=== PATIENT | female | born 1945 | race Caucasian/White ===

== ENCOUNTER → 2016-07-26 | Outpatient (CLI) | payer MEDICARE, BC ==
--- NOTE | 2016-07-27 12:18 | CARD ---
APPROVED REPORT EXAM: Two-dimensional and M-mode echocardiogram with Doppler and color Doppler. Other Information Quality : Average Rhythm : NSR INDICATION Murmur 2D DIMENSIONS RVDd3.1 (2.9-3.5cm)Left Atrium(2D)3.9 (1.6-4.0cm) IVSd1.0 (0.7-1.1cm)Aortic Root(2D)3.1 (2.0-3.7cm) LVDd5.3 (3.9-5.9cm)LVOT Diameter2.1 (1.8-2.4cm) PWd1.0 (0.7-1.1cm)LVDs2.7 (2.5-4.0cm) FS (%) 38.9 %SV106.5 ml LVEF(%)69.9 (>50%) Aortic Valve AoV Peak Toto.167.7cm/sAoV VTI37.2cm AO Peak GR.11.2mmHgLVOT Peak Otto.100.8cm/s LVOT VTI 26.20cmAO Mean GR.6mmHg SANTOS (VMAX)2.76vd1NYA (VTI)2.35cm2 Mitral Valve MV E Ofpnyowz18.0cm/sMV DECEL PKPW279kr MV A Rtabcwai29.8cm/sMV IQG13ag E/A Ratio1.1MV A Kirpgrog555xy MVA (PHT)2.73cm2 TDI E/Lateral E'5.5E/Medial E'10.3 Pulmonary Valve PV Peak Orvaiwip38.5cm/sPV Peak Grad.3mmHg Tricuspid Valve TR P. Xjpharxn406qg/sRAP VLTOYOIE5oiGt TR Peak Gr.59rlBjPITL03leNx Pulmonary Vein S1 Jselcgxd09.6cm/sD2 Hnnaddda49.8cm/s LEFT VENTRICLE The left ventricle is normal size. There is normal left ventricular wall thickness. Left ventricle sy stolic function is normal. The Ejection Fraction is 60-65%. There is normal LV segmental wall motion. The left ventricular diastolic function and filling is normal for age. There is no ventricular septa l defect visualized. RIGHT VENTRICLE The right ventricle is normal size. The right ventricular systolic function is normal. ATRIA The left atrium size is normal. The right atrium size is normal. The interatrial septum is intact wit h no evidence for an atrial septal defect or patent foramen ovale as noted on 2-D or Doppler imaging. AORTIC VALVE The aortic valve is normal in structure and function. The aortic valve is trileaflet. Doppler and Col or Flow revealed no significant aortic regurgitation. There is no significant aortic valvular stenosi s. MITRAL VALVE The mitral valve is normal in structure and function. There is no mitral valve stenosis. Doppler and Color Flow revealed mild mitral regurgitation. TRICUSPID VALVE The tricuspid valve is normal in structure and function. Doppler and Color Flow revealed mild tricusp id regurgitation. The PA pressure was estimated at 33 mmHg. There is no tricuspid valve stenosis. PULMONIC VALVE The pulmonic valve is not well visualized. Doppler and Color Flow revealed no pulmonic valvular regur gitation. There is no pulmonic valvular stenosis. GREAT VESSELS The aortic root is normal in size. The ascending aorta is normal in size. Normal pulmonary venous sasha w (Doppler). The IVC is normal in size and collapses >50% with inspiration. PERICARDIAL EFFUSION There is no evidence of significant pericardial effusion. Critical Notification Critical Value: No <Conclusion> Left ventricle systolic function is normal. The Ejection Fraction is 60-65%. There is normal LV segmental wall motion. The left ventricular diastolic function and filling is normal for age. Doppler and Color Flow revealed mild mitral regurgitation. Doppler and Color Flow revealed mild tricuspid regurgitation. The PA pressure was estimated at 33 mmH g.
== END | disposition home or self-care (01) ==
LOC: ECHO 07:29
PROVIDERS: ATTEND Physician Assistant Medical
DX: I31.3 Pericardial effusion (noninflammatory) (principal); I08.1 Rheumatic disorders of both mitral and tricuspid valves
CPT/HCPCS: 93306

== ENCOUNTER → 2018-08-30 | Outpatient (CLI) | payer MEDICARE, BC ==
[~2018-08-30] MED LIST: REGADENOSON 0.4 MG/5 ML DISP.SYRIN. IV ONE
--- NOTE | 2018-08-30 09:56 | RAD ---
RS Compliance Statement: One or more of the following individualized dose reduction techniques were utilized for this examination: 1. Automated exposure control 2. Adjustment of the mA and/or kV according to patient size 3. Use of iterative reconstruction technique CT head without contrast 08/30/2018 2:00 PM INDICATION: Memory loss COMPARISON: None available TECHNIQUE: Multiple axial CT images of the head were obtained from skull base through the vertex without intravenous contrast. FINDINGS: Head: Ventricles, sulci and basal cisterns are within normal limits. There is no hydrocephalus. Gale-white matter differentiation is normal. There is no acute intracranial hemorrhage. There is no mass, mass effect or midline shift. Posterior fossa is normal in appearance. Visualized portions of the orbits are normal with exception of bilateral lens replacement. Paranasal sinuses are well aerated. Mastoid air cells are well aerated. Scalp and calvaria are normal. IMPRESSION: No acute intracranial hemorrhage. Electronically signed by: Ana Mccann MD (08/30/2018 9:53 AM) [facility]
--- NOTE | 2018-08-30 13:08 | RAD ---
MR#: [id number] Date of Study: 08/30/2018 Ordering Physician: LILIYA KENT, Referring Physician: ALEKSANDER VOGEL Tech: TABITHA Dunlap APPROVED REPORT Test Type: Pharmacological Stress Nurse/Tech: Evelyn Vanegas RN Test Indications: A-fib Cardiac History: No known cardiac Medications: See Electronic Medical Record Medical History: See Electronic Medical Record Resting ECG: SB with p wave inversion and BBB Resting Heart Rate: 53 bpm Resting Blood Pressure: 111/59mmHg Pretest Chest Pain: No chest pain Nurse/Tech Notes S1,S2--regurgitation? and lungs clear to auscultation. Consent: The procedure was explained to the patient in lay terms. Informed consent was witnessed. Claudio eout was entered into [employer]. History and Stress Test performed by MANAS Clifford, JAKUB (R) (N) Pharm. Details Pharmacologic stress testing was performed using 0.4mg per 5ml of regadenoson given intravenously ove r 7-10 seconds. Stress Symptoms No chest pain or symptoms. POST EXERCISE Reason for Termination: Infusion complete Target HR: No Max HR: 84 bpm 67% of Maximum Predicted HR: 124 bpm Max Blood Pressure: 113/53mmHg Blood Pressure response to exercise: Normal blood pressure response during stress. Heart Rate response to exercise: WNL Chest Pain: No. Arrhythmia: No. ST Change: No. INTERPRETATION Stress EKG Conclusion: The resting EKG shows a sinus rhythm and minimal nonspecific ST segment change s. Imaging Protocol IMAGE PROTOCOL: Rest Tc-99m/stress Tc-99m 1 day Rest: Stress: Viability: Radiopharm.Tc99m IpnhmzeezCo97e Sestamibi Iwae02hCp 33mCi Duration 15min. 10min. Img Date 08/30/2018 08/30/2018 Inj-Img Zcuu27bve. 60min. Rest Admin Site:IV - Right HandAdministrator:MANAS Clifford, JAKUB (R)(N) Stress Admin Site: IV - Right HandAdministrator: MANAS Clifford, ARRT (R)(N) STRESS DATA End Diast. Vol.119.0mlAv. Heart Rate72.0bpm End Syst. Vol.34.0mlCO Index BSA0.0L/min Myocardial Jext755.0gEject. Lexheslw96.0% Stress Rates Pk. Fill Rate2.62EDV/secLVtime Pk. Fill 115.00msec Pk. Empty Rate4.53ESV/secLVtime Pk. Ozvtg807.02msec 1/3 Pk. Fill1.84EDV/sec Stress Scores Regional WT0.00Summed WT0.00 Regional WM0.00Summed WM0.00 LV Perfusion The stress scans showed minimal inferior thinning. The rest scans showed minimal inferior thinning. Nuclear imaging shows no evidence of reversible ischemia. There is fixed minimal inferior wall thinni ng most consistent with an attenuation defect. Wall Motion Left ventricular systolic function is normal with no regional wall motion abnormalities and an ejecti on fraction of greater than 70%. LV Perf. Quant 17 Seg. SSS9.00 17 Seg. SRS13.00 17 Seg. SDS0.00 Stress Defect Extent (% LAD)8.80Rest Defect Extent (% LAD)9.40Rev. Defect Extent (% LAD)0.00 Stress Defect Extent (% LCX) 20.00Rest Defect Extent (% LCX)23.80Rev. Defect Extent (% LCX)0.00 Stress Defect Extent (% RCA)13.30Rest Defect Extent (% RCA)37.80Rev. Defect Extent (% RCA)0.00 Stress Defect Extent (% [place])18.00Rest Defect Extent (% [place])25.20Rev. Defect Extent (% [place])0.00 Conclusion 1. No EKG evidence of stress-induced ischemia. 2. Nuclear imaging shows no reversible ischemia. 3. Nuclear imaging shows minimal fixed inferior wall thinning most consistent with an attenuation def ect. 4. Left ventricular systolic function is normal with no regional wall motion abnormalities and an eje ction fraction of greater than 70%. 5. Moderately low risk Lexiscan nuclear stress test with no reversible ischemia and normal LV systoli c function. Signed by : Clarence Hitchcock MD Electronically Approved : 08/30/2018 13:08:05
== END | disposition home or self-care (01) ==
LOC: NM 09:07
PROVIDERS: ATTEND Internal Medicine Cardiovascular Disease
DX: R41.3 Other amnesia (principal); I48.0 Paroxysmal atrial fibrillation
CPT/HCPCS: 70450; 78452; 93017; A9500; J2785

== ENCOUNTER → 2018-09-17 | Day surgery (SDC) | payer MEDICARE, BC ==
[~2018-09-17] MED LIST changes: +ATOR10TA PO; +BENZOCAINE ONE 20% MUCOSAL SPRAY. MM; +CHOL2000 PO; +EYE CAP PO; +EZET10TA18 PO; +HYDROmorphone 2 MG/ML VIAL IV PRN; +IV RINGERS,LACTATED 1000ML 1,000 ML IV SCH; +LEVO175T2 PO; +LIDOCAINE 1% PF 2 ML VIAL. ID PRN; +LIDOCAINE 2% TOPICAL JELLY 30GM TUBE. TP ONE; +MORPHINE SULFATE 2 MG/ML VIAL. IV PRN; +OMEG1600 PO; +ONDANSETRON PF 4 MG/2 ML VIAL. IV PRN; +PROCHLORPERAZINE 10 MG/2 ML VIAL. IV PRN; +PROPOFOL 20 ML IV ONE; -REGADENOSON 0.4 MG/5 ML DISP.SYRIN. IV ONE; +RIVA15TA PO; +VALS40TA2 PO; +[UNRECOGNIZED DRUG - OTHER] PO; +fentaNYL PF VIAL 100 MCG/2 ML VIAL IV PRN
--- NOTE | 2018-09-17 13:51 | EKG ---
[facility] [address] [place] [address] Test Date: 2018-09-17 Test Time: 13:45:08 Pat Name: WALLY MCKINLEY Department: Room: Gender: F Drying Room Attendant: RAMY : 1945 Requested By: LILIYA KENT Order Number: [id number] Reading MD: Measurements Intervals [place] Rate: 98 P: MA: QRS: -39 QRSD: 88 T: 28 QT: 354 QTc: 454 Interpretive Statements IRREGULAR RHYTHM, NO P-WAVE FOUND ABNORMAL LEFT AXIS DEVIATION S1,S2,S3 PATTERN LEFT ANTERIOR FASCICULAR BLOCK QRS(T) CONTOUR ABNORMALITY CONSIDER INFERIOR MYOCARDIAL DAMAGE ABNORMAL ECG RI6.01 No previous ECG available for comparison
[2018-09-17 14:12] LABS: HEMATOCRIT 42.6 % (36.0-47.0); HEMOGLOBIN 14.2 g/dL (12.0-15.5); RED BLOOD COUNT 4.69 x10^6/uL (3.50-5.40)
[2018-09-17 14:22] LABS: PROTHROMBIN TIME PATIENT 12.9 SEC (11.7-14.0)
[2018-09-17 14:25] LABS: CALCIUM 9.2 mg/dL (8.5-10.1); CREATININE 0.7 mg/dL (0.6-1.0)
[2018-09-17] MEDS: LIDOCAINE 2% VISCOUS 15 ML SOLUTION. SWSW ONE ×2 (15:10→15:15)
--- NOTE | 2018-09-17 16:16 | EKG ---
[facility] [address] [place] [address] Test Date: 2018-09-17 Test Time: 16:08:06 Pat Name: WALLY MCKINLEY Department: Room: Gender: F Irrigator Head: CRISTINE : 1945 Requested By: LILIYA KENT Order Number: [id number] Reading MD: Measurements Intervals [place] Rate: 49 P: 56 NC: 188 QRS: -35 QRSD: 94 T: 29 QT: 434 QTc: 391 Interpretive Statements SINUS BRADYCARDIA ABNORMAL LEFT AXIS DEVIATION LEFT ANTERIOR FASCICULAR BLOCK ABNORMAL ECG RI6.01 Unconfirmed report No previous ECG available for comparison
[2018-09-17 16:30] VITALS: BP 103/59
--- NOTE | 2018-09-17 17:07 | CARD ---
MR#: [id number] Date of Study: 09/17/2018 Ordering Physician: LILIYA HENRIQUEZ, Referring Physician: LILIYA HENRIQUEZ, Tech: Kristyn Saravia APPROVED REPORT EXAM: Transesophageal echocardiogram with color flow Doppler and Synchronized Cardioversion. INDICATION Atrial Fibrillation Reason For Test : Rule out Intracardiac Thrombus. PROCEDURE After obtaining informed consent, patient underwent transesophageal echo in the PACU. Type of Sedation : General Anesthesia Sedation was administered by Dr. Ari Grimes. Sedation was achieved with Propofol 60mg intravenously. Transesophageal probe was inserted and advanced into esophagus by Sd Henriquez MD. The LIZZY was performed without complications. Synchronized Cardioversion attempted: Successful Synchronized Cardioversion acheived with 200 Joules after 1 attempt(s). Throughout the procedure, the blood pressure, pulse oximetry, cardiac rhythm, and rate were monitored . The patient tolerated the procedure without adverse effects. Recovery from general anesthesia was une ventful and vital signs were stable. LEFT VENTRICLE The left ventricle is normal size. There is normal left ventricular wall thickness. The left ventricu lar systolic function is normal and the ejection fraction is within normal range. The Ejection Fracti on is 50-55%. There is normal LV segmental wall motion. The left ventricular diastolic function and f illing is normal for age. RIGHT VENTRICLE The right ventricle is normal size. There is normal right ventricular wall thickness. The right ventr icular systolic function is normal. ATRIA The left atrium size is normal. The right atrium size is normal. The interatrial septum is intact wit h no evidence for an atrial septal defect or patent foramen ovale as noted on 2-D or Doppler imaging. There is no thrombus noted in the left atrial appendage. AORTIC VALVE The aortic valve is normal in structure and function. Doppler and Color Flow revealed no significant aortic regurgitation. There is no significant aortic valvular stenosis. MITRAL VALVE The mitral valve is normal in structure and function. There is no evidence of mitral valve prolapse. There is no mitral valve stenosis. Doppler and Color-flow revealed trace to mild mitral regurgitation . TRICUSPID VALVE The tricuspid valve is normal in structure and function. Doppler and Color Flow revealed no tricuspid valve regurgitation noted. There is no tricuspid valve stenosis. PULMONIC VALVE The pulmonary valve is normal in structure and function. Doppler and Color Flow revealed no pulmonic valvular regurgitation. GREAT VESSELS The aortic root is normal in size. The IVC is normal in size and collapses >50% with inspiration. Critical Notification Critical Value: No <Conclusion> The left ventricular systolic function is normal and the ejection fraction is within normal range. Th e Ejection Fraction is 50-55%. There is normal LV segmental wall motion. Successful CVN to SR Signed by : Liliya Henriquez, Electronically Approved : 09/17/2018 17:06:31
== END ==
LOC: SURG 13:09
PROVIDERS: ATTEND Internal Medicine Cardiovascular Disease
DX: I34.0 Nonrheumatic mitral (valve) insufficiency (principal); Z79.01 Long term (current) use of anticoagulants
CPT/HCPCS: 36415; 80048; 83735; 85027; 85610; 85730; 93005; 93312; 93325; J2704; 92960

== ENCOUNTER → 2019-08-13 | Outpatient (CLI) | payer MEDICARE, BC ==
[2018-09-17 16:30] VITALS: BP 103/59
[~2019-08-13] MED LIST changes: -BENZOCAINE ONE 20% MUCOSAL SPRAY. MM; -EZET10TA18 PO; +EZET10TA20 PO; -HYDROmorphone 2 MG/ML VIAL IV PRN; -IV RINGERS,LACTATED 1000ML 1,000 ML IV SCH; -LIDOCAINE 1% PF 2 ML VIAL. ID PRN; -LIDOCAINE 2% TOPICAL JELLY 30GM TUBE. TP ONE; -MORPHINE SULFATE 2 MG/ML VIAL. IV PRN; -ONDANSETRON PF 4 MG/2 ML VIAL. IV PRN; -PROCHLORPERAZINE 10 MG/2 ML VIAL. IV PRN; -PROPOFOL 20 ML IV ONE; -fentaNYL PF VIAL 100 MCG/2 ML VIAL IV PRN
--- NOTE | 2019-08-13 12:28 | CARD ---
MR#: [id number] Date of Study: 08/13/2019 Ordering Physician: LILIYA KENT, Referring Physician: LILIYA KENT, Tech: Raquel Brice [facility] APPROVED REPORT EXAM: Two-dimensional and M-mode echocardiogram with Doppler and color Doppler. Other Information Quality : Good INDICATION Atrial Fibrillation 2D DIMENSIONS RVDd2.6 (2.9-3.5cm)Left Atrium(2D)4.1 (1.6-4.0cm) IVSd0.9 (0.7-1.1cm)Aortic Root(2D)2.7 (2.0-3.7cm) LVDd5.7 (3.9-5.9cm)LVOT Diameter2.1 (1.8-2.4cm) PWd0.8 (0.7-1.1cm)LVDs3.2 (2.5-4.0cm) FS (%) 30.0 %SV115.3 ml LVEF(%)60.0 (>50%) Aortic Valve AoV Peak Otto.185.5cm/sAoV VTI37.8cm AO Peak GR.13.8mmHgLVOT Peak Otto.158.4cm/s AO Mean GR.7mmHgAVA (VMAX)2.82cm2 SANTOS (VTI)3.00cm2 Mitral Valve MV E Lahqtlyr010.0cm/sMV DECEL HZVD930pr MV A Twfdjmlg45.6cm/sE/A Ratio1.7 Tricuspid Valve TR P. Frftuoak004uc/sRAP ODKSZQYO8oqQr TR Peak Gr.37svPjYSMQ02zzVv Pulmonary Vein S1 Enizwvzr77.8cm/sD2 Yhqcitly99.1cm/s LEFT VENTRICLE The left ventricle is normal size. There is normal left ventricular wall thickness. The left ventricu lar systolic function is normal and the ejection fraction is within normal range. The Ejection Fracti on is 55-60%. There is normal LV segmental wall motion. Transmitral Doppler flow pattern is Grade I-a bnormal relaxation pattern. RIGHT VENTRICLE The right ventricle is normal size. The right ventricular systolic function is normal. ATRIA The left atrium is mildly dilated. The right atrium is mildly dilated. The interatrial septum is inta ct with no evidence for an atrial septal defect or patent foramen ovale as noted on 2-D or Doppler im aging. AORTIC VALVE The aortic valve is calcified but opens well. Doppler and Color Flow revealed trace aortic regurgitat ion. There is no significant aortic valvular stenosis. MITRAL VALVE The mitral valve is calcified but opens well. There is no evidence of mitral valve prolapse. There is no mitral valve stenosis. Doppler and Color-flow revealed mild mitral regurgitation. TRICUSPID VALVE The tricuspid valve is normal in structure and function. Doppler and Color Flow revealed mild tricusp id regurgitation. The PA pressure was estimated at 34 mmHg. There is no tricuspid valve stenosis. PULMONIC VALVE The pulmonic valve is not well visualized. Doppler and Color Flow revealed mild pulmonic valvular reg urgitation. There is no pulmonic valvular stenosis. GREAT VESSELS The aortic root is normal in size. The ascending aorta is normal in size. The IVC is normal in size a nd collapses <50% with inspiration. PERICARDIAL EFFUSION There is no evidence of significant pericardial effusion. Critical Notification Critical Value: No <Conclusion> The left ventricle is normal size. The left ventricular systolic function is normal and the ejection fraction is within normal range. The Ejection Fraction is 55-60%. Doppler and Color Flow revealed trace aortic regurgitation. There is no significant aortic valvular stenosis. Doppler and Color-flow revealed mild mitral regurgitation. Doppler and Color Flow revealed mild tricuspid regurgitation. The PA pressure was estimated at 34 mmHg. Signed by : Clarence Hitchcock MD Electronically Approved : 08/13/2019 12:28:10
== END | disposition home or self-care (01) ==
LOC: ECHO 10:34
PROVIDERS: ATTEND Internal Medicine Cardiovascular Disease
DX: I08.8 Other rheumatic multiple valve diseases (principal); I48.91 Unspecified atrial fibrillation
CPT/HCPCS: 93306

== ENCOUNTER 2021-07-23 07:02 | Inpatient (IN) | payer MEDICARE, BC ==
[~2021-07-23] VITALS: Ht 167.6 cm; Wt 87.8 kg
[~2021-07-23 07:02] MED LIST changes: +CALC-98 PO; +DONE10TA7 PO; +FURO40TA4 PO; +LEVO150T75 PO; +MEMA10TA PO; +SERT25TA PO
[2021-07-23] MEDS ORDERED: IV NORMAL SALINE 1000ML BAG 1,000 ML IV ONE ×2 (07:15→13:30)
--- NOTE | 2021-07-23 07:36 | PHYS DOC ---
Past Medical History Past Medical History: CHF, High Cholesterol, Hypertension, Hypothyroid Additional Past Medical Histor: moderate-Alzheimer's disease Past Surgical History: Other Additional Past Surgical Histo: heart shocked Smoking Status: Never Smoker Alcohol Use: None Adult General Chief Complaint Chief Complaint: WEAKNESS/GENERALIZED HPI HPI Patient is a 76 year old female presenting to the emergency department for evaluation of generalized weakness. History initially provided by EMS as is not present. Patient is not able to provide much meaningful inf ormation as she has a history of Alzheimer's and does not know why she is here. Reportedly she can ambulate at baseline with a walker however she was unable to ambulate this morning as both of her legs were weak. Patient says that she is having pain in her pelvis but denies any falls. She says she always has problems with her lower legs being painful. She denies fevers chills nausea vomiting chest pain shortness of breath dysuria or decreased p.o. intake. She is in no acute distress with normal vital signs. Review of Systems Review of Systems Constitutional: Denies fever or chills [] Eyes: Denies change in visual acuity, redness, or eye pain [] HENT: Denies nasal congestion or sore throat [] Respiratory: Denies cough or shortness of breath [] Cardiovascular: No additional information not addressed in HPI [] GI: Denies abdominal pain, nausea, vomiting, bloody stools or diarrhea [] : Denies dysuria or hematuria [] Musculoskeletal: Denies back pain or joint pain [] Integument: Denies rash or skin lesions [] Neurologic: Denies headache, focal weakness or sensory changes [] All other systems were reviewed and found to be within normal limits, except as documented in this note. Current Medications Current Medications Current Medications Medications (Trade) Dose Ordered Sig/Ivett Start Time Stop Time Status Last Admin Dose Admin Ceftriaxone Sodium (Rocephin) 2 gm 1X ONCE 07/23/21 10:00 07/23/21 10:01 DC Sodium Chloride 1,000 ml @ 1,000 mls/hr 1X ONCE 07/23/21 07:15 07/23/21 08:14 DC 07/23/21 07:43 1,000 MLS/HR Allergies Allergies Allergies Coded Allergies Type Severity Reaction Last Updated Verified No Known Drug Allergies 07/23/21 No Physical Exam Physical Exam Constitutional: Chronically ill-appearing female in no acute distress HENT: Normocephalic, atraumatic, bilateral external ears normal, oropharynx moist, no oral exudates, nose normal. [] Eyes: PERRLA, EOMI, conjunctiva normal, no discharge. [] Neck: Normal range of motion, no tenderness, supple, no stridor. [] Cardiovascular:Heart rate regular rhythm, no murmur [] Lungs & Thorax: Bilateral breath sounds clear to auscultation [] Abdomen: Bowel sounds normal, soft, no tenderness, no masses, no pulsatile masses. [] Skin: Warm, dry, no erythema, no rash. [] Back: No tenderness, no CVA tenderness. [] Extremities: No tenderness, no cyanosis, no clubbing, ROM intact, no edema. [] Neurologic: Alert and oriented X 1, will follow commands and move all extremities Current Patient Data Vital Signs Vital Signs Date Time Temp Pulse Resp B/P (MAP) Pulse Ox O2 Delivery O2 Flow Rate FiO2 07/23/21 09:34 66 20 107/55 (72) 94 Room Air 07/23/21 08:55 99.5 99.5 Lab Values Laboratory Tests Test 07/23/21 08:30 07/23/21 08:50 07/23/21 09:06 07/23/21 09:13 White Blood Count 10.3 x10^3/uL (4.0-11.0) Red Blood Count 4.46 x10^6/uL (3.50-5.40) Hemoglobin 12.8 g/dL (12.0-15.5) Hematocrit 38.2 % (36.0-47.0) Mean Corpuscular Volume 86 fL (79-100) Mean Corpuscular Hemoglobin 29 pg (25-35) Mean Corpuscular Hemoglobin Concent 33 g/dL (31-37) Red Cell Distribution Width 14.9 % (11.5-14.5) H Platelet Count 218 x10^3/uL (140-400) Neutrophils (%) (Auto) 83 % (31-73) H Lymphocytes (%) (Auto) 9 % (24-48) L Monocytes (%) (Auto) 8 % (0-9) Eosinophils (%) (Auto) 0 % (0-3) Basophils (%) (Auto) 0 % (0-3) Neutrophils # (Auto) 8.5 x10^3/uL (1.8-7.7) H Lymphocytes # (Auto) 0.9 x10^3/uL (1.0-4.8) L Monocytes # (Auto) 0.8 x10^3/uL (0.0-1.1) Eosinophils # (Auto) 0.0 x10^3/uL (0.0-0.7) Basophils # (Auto) 0.0 x10^3/uL (0.0-0.2) Influenza Type A Antigen Negative (NEGATIVE) Influenza Type B Antigen Negative (NEGATIVE) SARS-CoV-2 Antigen (Rapid) Negative (NEGATIVE) Sodium Level 133 mmol/L (136-145) L Potassium Level 3.3 mmol/L (3.5-5.1) L Chloride Level 100 mmol/L (98-107) Carbon Dioxide Level 24 mmol/L (21-32) Anion Gap 9 (6-14) Blood Urea Nitrogen 21 mg/dL (7-20) H Creatinine 1.7 mg/dL (0.6-1.0) H Estimated GFR (Cockcroft-Gault) 29.2 BUN/Creatinine Ratio 12 (6-20) Glucose Level 106 mg/dL (70-99) H Calcium Level 9.1 mg/dL (8.5-10.1) Total Bilirubin 0.6 mg/dL (0.2-1.0) Aspartate Amino Transferase (AST) 138 U/L (15-37) H Alanine Aminotransferase (ALT) 41 U/L (14-59) Alkaline Phosphatase 114 U/L (46-116) Total Protein 7.2 g/dL (6.4-8.2) Albumin 2.6 g/dL (3.4-5.0) L Albumin/Globulin Ratio 0.6 (1.0-1.7) L Lipase 52 U/L (73-393) L Prothrombin Time 13.3 SEC (11.7-14.0) Prothrombin Time INR 1.0 (0.8-1.1) Activated Partial Thromboplast Time 25 SEC (24-38) Troponin I High Sensitivity 31 ng/L (4-50) Test 07/23/21 09:22 Urine Collection Type U cath Urine Color (Auto) Yellow Urine Turbidity Hazy Urine pH (Auto) 5.5 (<5.0-8.0) Urine Specific [place] 1.014 (1.000-1.030) Urine Protein (Auto) 50 mg/dL (Negative) Urine Glucose (Auto)(UA) Negative mg/dL (Negative) Urine Ketones (Auto) Negative mg/dL (Negative) Urine Blood (Auto) Large (Negative) Urine Nitrite Negative (Negative) Urine Bilirubin (Auto) Negative (Negative) Urine Urobilinogen (Auto) Normal mg/dL (Normal) Urine Leukocyte Esterase (Auto) Large (Negative) Urine RBC 3-5 /HPF (0-2) Urine WBC 11-20 /HPF (0-4) Urine Bacteria Many /HPF (0-FEW) Urine Hyaline Casts Occasional /HPF Urine Mucus Slight /LPF Laboratory Tests 07/23/21 08:30 Laboratory Tests 07/23/21 09:06 EKG EKG I degree of baseline artifact makes it very difficult to interpret but from the leads that I can interpret she appears to be in a normal sinus rhythm at 70 bpm with no obvious ST elevation or depression and normal T waves. Radiology/Procedures Radiology/Procedures [] Course & Med Decision Making Course & Med Decision Making I will check labs and imaging treat with IV fluids and wait for 's input and reassess. Essentially patient's said that she was unable to stand up due to pain and weakness in her legs which is atypical for her. Patient does continue to have pain and weakness in her legs as I tried ranging her joints and she says it hurts significantly. Patient does have urinary tract infection which could be a sending upwards to her ureter and kidneys so I will have her admitted to the hospital and treat her urinary tract infection. Given her limited mobility and increased pain at this time she may need further rehab or placement. I spoke to Dr. Seth and he agreed to accept patient for further observation and treatment. Dragon Disclaimer Dragon Disclaimer This electronic medical record was generated, in whole or in part, using a voice recognition dictation system. Departure Departure Impression: Primary Impression: Failure to thrive in adult Additional Impressions: Inability to ambulate due to multiple joints UTI (urinary tract infection) Hypokalemia Renal insufficiency Disposition: ADMITTED INPATIENT Admitting Physician: NATE (Amy) Condition: STABLE Referrals: PHILLIP MARQUEZ (PCP) Problem Qualifiers AELX KAY DO July 23, 2021 07:36
--- NOTE | 2021-07-23 08:31 | RAD ---
PQRS Compliance Statement: One or more of the following individualized dose reduction techniques were utilized for this examinat ion: 1. Automated exposure control 2. Adjustment of the mA and/or kV according to patient size 3. Use of iterative reconstruction technique CT head without contrast 07/23/2021 7:50 AM INDICATION: Lower extremity weakness COMPARISON: CT head 07/26/2020 TECHNIQUE: Multiple axial CT images of the head were obtained from skull base through the vertex with out intravenous contrast. FINDINGS: Head: Ventricles, sulci and basal cisterns are within normal limits. Low-attenuation in the periventricular white matter is suggestive of chronic small vessel ischemic changes. There is no hydrocephalus. Glae -white matter differentiation is normal. There is no acute intracranial hemorrhage. There is no mass, mass effect or midline shift. Posterior fossa is normal in appearance. Visualized portions of the orbits are normal with exception of bilateral lens replacement. Mild mucos al thickening of the left frontal sinus. Mastoid air cells are well aerated. Scalp and calvaria are n ormal. IMPRESSION: No acute intracranial hemorrhage. Low-attenuation in the periventricular white matter is suggestive of chronic small vessel ischemic ch anges. Findings are stable from prior examination. Electronically signed by: Ana Mccann MD (07/23/2021 8:28 AM) [id number]
--- NOTE | 2021-07-23 08:32 | RAD ---
AP chest. HISTORY: Weakness AP view was taken of the chest. There is no pneumothorax or pleural effusion. Heart is normal in size . The aorta is tortuous. Patient is rotated to the left. There are no acute infiltrates. There is art hritis in the left shoulder. IMPRESSION: 1. No acute infiltrates. Electronically signed by: Betito Hayes MD (07/23/2021 8:29 AM) [id number]
--- NOTE | 2021-07-23 08:36 | RAD ---
PQRS Compliance Statement: One or more of the following individualized dose reduction techniques were utilized for this examinat ion: 1. Automated exposure control 2. Adjustment of the mA and/or kV according to patient size 3. Use of iterative reconstruction technique CT abdomen/pelvis without contrast 07/23/2021 7:50 AM INDICATION: Lower extremity weakness COMPARISON: None available TECHNIQUE: Multiple axial CT images of the abdomen and pelvis were obtained without intravenous contr ast. Coronal and sagittal reformats are provided. FINDINGS: Heart size within normal limits. Small hiatal hernia. There are linear opacities at the lung bases fa voring subsegmental atelectasis or scarring. Evaluation of solid abdominal viscera is limited by lack of intravenous contrast. No suspicious hepatic lesions are identified. Spleen, adrenal glands and pa ncreas are normal in appearance. Gallbladder is present without adjacent inflammation. The abdominal aorta is normal in course and caliber. There are no pathologically enlarged lymph nodes in the abdomen and pelvis. There is no abdominal free fluid. There is no free intraperitoneal air. M ild calcified atheromatous plaque is identified. There is asymmetric right-sided perinephric edema with mild periureteral fat stranding along the prox imal right ureter. No calculi identified in the kidneys, ureters or urinary bladder. Urinary bladder is within normal limits given degree of distention. No suspicious pelvic mass. Moderate colonic diverticulosis. Small and large bowel are normal in caliber. No bowel obstruction or inflammation. Appendix is not definitively visualized. No pericecal inflammatory changes. Levoconvex scoliosis of the lumbar spine with moderate lumbar spondylosis. IMPRESSION: 1. Mild right perinephric and proximal periureteral fat stranding. Correlate with urinalysis to asses s for superimposed infection as may be seen with pyelonephritis/pyelitis. No findings to suggest obst ructive uropathy. 2. Small hiatal hernia. 3. Moderate colonic diverticulosis without adjacent inflammation. Electronically signed by: Ana Mccann MD (07/23/2021 8:33 AM) [id number]
[2021-07-23 08:50] LABS: BASO % 0 % (0-3); EOS % 0 % (0-3); HEMATOCRIT 38.2 % (36.0-47.0); HEMOGLOBIN 12.8 g/dL (12.0-15.5); LYMPH # 0.9 x10^3/uL (1.0-4.8); LYMPH % 9 % (24-48); MEAN CORPUSCULAR HEMOGLOBIN 29 pg (25-35); MEAN CORPUSCULAR HGB CONC 33 g/dL (31-37); MEAN CORPUSCULAR VOLUME 86 fL (79-100); MONO # 0.8 x10^3/uL (0.0-1.1); MONO % 8 % (0-9); NEUT # 8.5 x10^3/uL (1.8-7.7); NEUT % 83 % (31-73); PLATELET COUNT 218 x10^3/uL (140-400); RED BLOOD COUNT 4.46 x10^6/uL (3.50-5.40); RED CELL DISTRIBUTION WIDTH 14.9 % (11.5-14.5); WHITE BLOOD COUNT 10.3 x10^3/uL (4.0-11.0)
[2021-07-23 09:21] LABS: INFLUENZA A PATIENT NEGATIVE (NEGATIVE); INFLUENZA B PATIENT NEGATIVE (NEGATIVE)
[2021-07-23 09:46] LABS: PROTHROMBIN TIME PATIENT 13.3 SEC (11.7-14.0)
[2021-07-23 09:54] LABS: CALCIUM 9.1 mg/dL (8.5-10.1); CREATININE 1.7 mg/dL (0.6-1.0); GFR 29.2; POTASSIUM 3.3 mmol/L (3.5-5.1)
[2021-07-23 09:55] LABS: HYALINE CASTS, URINE OCCASIONAL /HPF
[2021-07-23 09:57] LABS: BACTERIA,URINE MANY /HPF (0-FEW)
[2021-07-23 10:00] LABS: ALBUMIN 2.6 g/dL (3.4-5.0); ALBUMIN/GLOBULIN RATIO 0.6 (1.0-1.7); TOTAL BILIRUBIN 0.6 mg/dL (0.2-1.0); TOTAL PROTEIN 7.2 g/dL (6.4-8.2)
[2021-07-23] MEDS ORDERED: cefTRIAXone IV Push 1 GM VIAL. IVP ONE (10:00)
[2021-07-23] MEDS ORDERED: ONDANSETRON PF 4 MG/2 ML VIAL. IVP PRN ×2 (10:15→13:15)
[2021-07-23] MEDS ORDERED: MORPHINE SULFATE 2 MG/ML INJ. IVP PRN (10:15)
[2021-07-23] MEDS ORDERED: POTASSIUM CHLORIDE 20 MEQ TABLET.ER. PO ONE (10:15)
--- NOTE | 2021-07-23 10:24 | PDOC1 ---
History and Physical Date of Admission Date of Admission DATE: 07/23/21 TIME: 10:17 Identification/Chief Complaint Chief Complaint Confusion Source Source: Patient History of Present Illness History of Present Illness Ms Miguel is a 76 yo female w/ PMHx hypothyroidism, afib, HTN, Alzheimer dementia, HLD, falls who comes to ED via EMS for worsening weakness and conf usion at home. and son note for the past several days she has been acting more confused and crying out in pain when moving her right leg. She normally can get around with a walker but he has been having trouble getting around. and son both note she is also had a chronic cough which has been bothersome lately and she has been refusing to eat due to fear of coughing. When asked the patient where she has pain she says "my legs". Historically she always complains of pain in her legs per family. This is worse recently. She actually has been seen outpatient by orthopedic surgery at [facility] for severe osteoarthritis of bilateral knees and was recommended against surgery given the likelihood of a poor outcome. Heart rate 93 bpm and febrile to 102.7. Labs with WBC 10.3, Hb 12.8, platelets 218, INR 1, PTT 25, NA 133, K3.3, BUN 21, CR 1.7, glucose 106, calcium 9.1, bilirubin 0.6, AST 138, ALT 41, alkaline phosphatase 114, albumin 2.6, lipase 52, urinalysis with large leuk esterase large blood foul-smelling, rapid influenza negative, rapid COVID-19 negative. Blood and urine cultures pending Noncontrast CT head on my review with no acute intracranial hemorrhage. Chest radiograph with no infiltrate noted. CT abdomen pelvis without contrast with di verticulosis and right perinephric proximal ureteral fat stranding concerning for pyelonephritis no ureteral obstructions. Past Medical History Cardiovascular: AFIB, HTN, Hyperlipidemia CENTRAL NERVOUS SYSTEM: Dementia Musculoskeletal: Osteoarthritis Past Surgical History Past Surgical History: Cataract Removal, No pertinent history Family History Family History: Hypertension Social History Smoke: No ALCOHOL: none Current Medications Current Medications Current Medications Sodium Chloride 1,000 ml @ 1,000 mls/hr 1X ONCE IV Last administered on 07/23/21at 07:43; Start 07/23/21 at 07:15; Stop 07/23/21 at 08:14; Status DC Ceftriaxone Sodium (Rocephin) 2 gm 1X ONCE IVP ; Start 07/23/21 at 10:00; Stop 07/23/21 at 10:01; Status DC Potassium Chloride (Klor-Con) 40 meq 1X ONCE PO ; Start 07/23/21 at 10:15; Stop 07/23/21 at 10:16; Status DC Ondansetron HCl (Zofran) 4 mg PRN Q8HRS PRN IVP NAUSEA/VOMITING; Start 07/23/21 at 10:15; Stop 07/24/21 at 10:14 Morphine Sulfate (Morphine Sulfate) 2 mg PRN Q2HR PRN IVP PAIN; Start 07/23/21 at 10:15; Stop 07/24/21 at 10:14 Active Scripts Active Reported Calcium + Vitamin D Tablet (Calcium Carbonate/Vitamin D3) 1 Each Tablet 1 Each PO BID Namenda (Memantine Hcl) 10 Mg Tablet 10 Mg PO BID Zoloft (Sertraline Hcl) 25 Mg Tablet 1 Tab PO DAILY Furosemide 40 Mg Tablet 1 Tab PO 3X/WEEK Donepezil Hcl 10 Mg Tablet 1 Tab PO BID Euthyrox (Levothyroxine Sodium) 150 Mcg Tablet 150 Mcg PO DAILY Fish Oil 1,600 mg/5 ml Liquid ([place]-3/Dha/Epa/Fish Oil) 1,600 Mg/5 Ml Liquid 1,600 Mg PO BID [Eye Cap] 2 Tab PO BID Vitamin D (Cholecalciferol (Vitamin D3)) 2,000 Unit Capsule 1 Cap PO DAILY Zetia (Ezetimibe) 10 Mg Tablet 1 Tab PO DAILY Lipitor (Atorvastatin Calcium) 10 Mg Tablet 1 Tab PO QHS Diovan (Valsartan) 40 Mg Tablet 40 Mg PO DAILY Allergies Allergies: Coded Allergies: No Known Drug Allergies (Unverified , 07/23/21) ROS Review of System Unable to obtain due to advanced dementia attempted 11 point ROS Physical Exam General: Alert, Cooperative, mild distress HEENT: Atraumatic, PERRLA, EOMI, Mucous membr. moist/pink Lungs: Clear to auscultation, Normal air movement Heart: S1S2, RRR, no thrills, no rubs, no gallops, no murmurs Abdomen: Normal bowel sounds, Soft, No tenderness, No hepatosplenomegaly, No masses Extremities: No clubbing, No cyanosis, No edema, Normal pulses, No tenderness/swelling Skin: No rashes, No breakdown, No significant lesion Neuro: Normal tone, Sensation intact, Cranial nerves 3-12 NL, Reflexes 2+, Other (Moving all 4 limbs) Psych/Mental Status: Other (Confused a little combative) Vitals Vitals Vital Signs Date Time Temp Pulse Resp B/P (MAP) Pulse Ox O2 Delivery O2 Flow Rate FiO2 07/23/21 09:34 66 20 107/55 (72) 94 Room Air 07/23/21 08:55 99.5 99.5 Labs Labs Laboratory Tests Test 07/23/21 08:30 07/23/21 08:50 07/23/21 09:06 07/23/21 09:13 White Blood Count 10.3 x10^3/uL (4.0-11.0) Red Blood Count 4.46 x10^6/uL (3.50-5.40) Hemoglobin 12.8 g/dL (12.0-15.5) Hematocrit 38.2 % (36.0-47.0) Mean Corpuscular Volume 86 fL (79-100) Mean Corpuscular Hemoglobin 29 pg (25-35) Mean Corpuscular Hemoglobin Concent 33 g/dL (31-37) Red Cell Distribution Width 14.9 % (11.5-14.5) Platelet Count 218 x10^3/uL (140-400) Neutrophils (%) (Auto) 83 % (31-73) Lymphocytes (%) (Auto) 9 % (24-48) Monocytes (%) (Auto) 8 % (0-9) Eosinophils (%) (Auto) 0 % (0-3) Basophils (%) (Auto) 0 % (0-3) Neutrophils # (Auto) 8.5 x10^3/uL (1.8-7.7) Lymphocytes # (Auto) 0.9 x10^3/uL (1.0-4.8) Monocytes # (Auto) 0.8 x10^3/uL (0.0-1.1) Eosinophils # (Auto) 0.0 x10^3/uL (0.0-0.7) Basophils # (Auto) 0.0 x10^3/uL (0.0-0.2) Influenza Type A Antigen Negative (NEGATIVE) Influenza Type B Antigen Negative (NEGATIVE) SARS-CoV-2 Antigen (Rapid) Negative (NEGATIVE) Sodium Level 133 mmol/L (136-145) Potassium Level 3.3 mmol/L (3.5-5.1) Chloride Level 100 mmol/L (98-107) Carbon Dioxide Level 24 mmol/L (21-32) Anion Gap 9 (6-14) Blood Urea Nitrogen 21 mg/dL (7-20) Creatinine 1.7 mg/dL (0.6-1.0) Estimated GFR (Cockcroft-Gault) 29.2 BUN/Creatinine Ratio 12 (6-20) Glucose Level 106 mg/dL (70-99) Calcium Level 9.1 mg/dL (8.5-10.1) Total Bilirubin 0.6 mg/dL (0.2-1.0) Aspartate Amino Transf (AST/SGOT) 138 U/L (15-37) Alanine Aminotransferase (ALT/SGPT) 41 U/L (14-59) Alkaline Phosphatase 114 U/L (46-116) Total Protein 7.2 g/dL (6.4-8.2) Albumin 2.6 g/dL (3.4-5.0) Albumin/Globulin Ratio 0.6 (1.0-1.7) Lipase 52 U/L (73-393) Prothrombin Time 13.3 SEC (11.7-14.0) Prothromb Time International Ratio 1.0 (0.8-1.1) Activated Partial Thromboplast Time 25 SEC (24-38) Test 07/23/21 09:22 Urine Collection Type U cath Urine Color (Auto) Yellow Urine Turbidity Hazy Urine pH (Auto) 5.5 (<5.0-8.0) Urine Specific [place] 1.014 (1.000-1.030) Urine Protein (Auto) 50 mg/dL (Negative) Urine Glucose (Auto)(UA) Negative mg/dL (Negative) Urine Ketones (Auto) Negative mg/dL (Negative) Urine Blood (Auto) Large (Negative) Urine Nitrite Negative (Negative) Urine Bilirubin (Auto) Negative (Negative) Urine Urobilinogen (Auto) Normal mg/dL (Normal) Urine Leukocyte Esterase (Auto) Large (Negative) Urine RBC 3-5 /HPF (0-2) Urine WBC 11-20 /HPF (0-4) Urine Bacteria Many /HPF (0-FEW) Urine Hyaline Casts Occasional /HPF Urine Mucus Slight /LPF Laboratory Tests Test 07/23/21 08:30 07/23/21 08:50 07/23/21 09:06 07/23/21 09:13 White Blood Count 10.3 x10^3/uL (4.0-11.0) Red Blood Count 4.46 x10^6/uL (3.50-5.40) Hemoglobin 12.8 g/dL (12.0-15.5) Hematocrit 38.2 % (36.0-47.0) Mean Corpuscular Volume 86 fL (79-100) Mean Corpuscular Hemoglobin 29 pg (25-35) Mean Corpuscular Hemoglobin Concent 33 g/dL (31-37) Red Cell Distribution Width 14.9 % (11.5-14.5) Platelet Count 218 x10^3/uL (140-400) Neutrophils (%) (Auto) 83 % (31-73) Lymphocytes (%) (Auto) 9 % (24-48) Monocytes (%) (Auto) 8 % (0-9) Eosinophils (%) (Auto) 0 % (0-3) Basophils (%) (Auto) 0 % (0-3) Neutrophils # (Auto) 8.5 x10^3/uL (1.8-7.7) Lymphocytes # (Auto) 0.9 x10^3/uL (1.0-4.8) Monocytes # (Auto) 0.8 x10^3/uL (0.0-1.1) Eosinophils # (Auto) 0.0 x10^3/uL (0.0-0.7) Basophils # (Auto) 0.0 x10^3/uL (0.0-0.2) Influenza Type A Antigen Negative (NEGATIVE) Influenza Type B Antigen Negative (NEGATIVE) SARS-CoV-2 Antigen (Rapid) Negative (NEGATIVE) Sodium Level 133 mmol/L (136-145) Potassium Level 3.3 mmol/L (3.5-5.1) Chloride Level 100 mmol/L (98-107) Carbon Dioxide Level 24 mmol/L (21-32) Anion Gap 9 (6-14) Blood Urea Nitrogen 21 mg/dL (7-20) Creatinine 1.7 mg/dL (0.6-1.0) Estimated GFR (Cockcroft-Gault) 29.2 BUN/Creatinine Ratio 12 (6-20) Glucose Level 106 mg/dL (70-99) Calcium Level 9.1 mg/dL (8.5-10.1) Total Bilirubin 0.6 mg/dL (0.2-1.0) Aspartate Amino Transf (AST/SGOT) 138 U/L (15-37) Alanine Aminotransferase (ALT/SGPT) 41 U/L (14-59) Alkaline Phosphatase 114 U/L (46-116) Total Protein 7.2 g/dL (6.4-8.2) Albumin 2.6 g/dL (3.4-5.0) Albumin/Globulin Ratio 0.6 (1.0-1.7) Lipase 52 U/L (73-393) Prothrombin Time 13.3 SEC (11.7-14.0) Prothromb Time International Ratio 1.0 (0.8-1.1) Activated Partial Thromboplast Time 25 SEC (24-38) Test 07/23/21 09:22 Urine Collection Type U cath Urine Color (Auto) Yellow Urine Turbidity Hazy Urine pH (Auto) 5.5 (<5.0-8.0) Urine Specific [place] 1.014 (1.000-1.030) Urine Protein (Auto) 50 mg/dL (Negative) Urine Glucose (Auto)(UA) Negative mg/dL (Negative) Urine Ketones (Auto) Negative mg/dL (Negative) Urine Blood (Auto) Large (Negative) Urine Nitrite Negative (Negative) Urine Bilirubin (Auto) Negative (Negative) Urine Urobilinogen (Auto) Normal mg/dL (Normal) Urine Leukocyte Esterase (Auto) Large (Negative) Urine RBC 3-5 /HPF (0-2) Urine WBC 11-20 /HPF (0-4) Urine Bacteria Many /HPF (0-FEW) Urine Hyaline Casts Occasional /HPF Urine Mucus Slight /LPF VTE Prophylaxis Ordered VTE Prophylaxis Devices: Yes VTE Pharmacological Prophylaxi: Yes Assessment/Plan Assessment/Plan Acute encephalopathy -metabolic due to renal injury and sepsis from pyelonephritis will treat. Right pyelonephritis - UA grossly abnormal. Rocephin 2g daily PARKER -likely vasomotor nephropathy will hydrate monitor Sepsis -due to likely right pyelonephritis Bilateral leg pain -has remote history of provoked DVT in the past. No swelling CT with no acute fractures of the pelvis. She has normal range of motion of both hips. We will give topical Voltaren to knees. Follow-up venous Dopplers bilateral Hypokalemia -likely nutritional will replace check mag monitor trend. Chronic cough - will treat as GERD Hypothyroidism -150 MCG's on the end of high dose especially given her history of atrial fibrillation we will start by decreasing to 112 MCG History of falls - rehab modalities H/o atrial fibrillation - cardioverted in the past. Alzheimer Dementia -no full-time caregiver at home. On Aricept and Namenda Hyperlipidemia - zetia + statin Hypertension - cont home meds Severe protein calorie malnutrition -likely due to advancing dementia and acute sepsis. FEN - regular diet PPX - lovenox CODE - DNR/DNI Dispo - inpatient Justifications for Admission Other Justification Acute lower extremity DVT DEWAYNE CARLSON MD July 23, 2021 10:24
[2021-07-23 11:25] VITALS: BP 157/53
[2021-07-23] MEDS ORDERED: ACETAMINOPHEN 325 MG TABLET. PO PRN ×2 (12:30→13:15)
[2021-07-23] MEDS ORDERED: fentaNYL PF VIAL 100 MCG/2 ML VIAL IVP PRN (13:15)
[2021-07-23] MEDS ORDERED: guaiFENesin DM 200MG/20MG 10 ML SYRUP PO PRN (13:15)
[2021-07-23] MEDS ORDERED: HALOPERIDOL LACTATE 5 MG/ML VIAL. IM PRN (13:15)
[2021-07-23 15:00] VITALS: BP 137/62
[2021-07-23] MEDS: LANSOPRAZOLE 30 MG TAB.RAP.DR PO SCH (16:30)
[2021-07-23 19:54] VITALS: BP 108/58
[2021-07-23] MEDS: DONEPEZIL HCL 10 MG TABLET. PO SCH (21:52)
[2021-07-23] MEDS: ATORVASTATIN CALCIUM 10 MG TABLET. PO SCH (21:52)
[2021-07-23] MEDS: MEMANTINE 10 MG TABLET. PO SCH (21:52)
[2021-07-23 23:39] VITALS: BP 147/56
[2021-07-24 03:47] VITALS: BP_SYST 105
[2021-07-24 07:00] VITALS: BP 136/60
[2021-07-24 07:31] LABS: BASO % 0 % (0-3); EOS % 0 % (0-3); HEMATOCRIT 34.9 % (36.0-47.0); HEMOGLOBIN 11.7 g/dL (12.0-15.5); LYMPH # 0.6 x10^3/uL (1.0-4.8); LYMPH % 8 % (24-48); MEAN CORPUSCULAR HEMOGLOBIN 29 pg (25-35); MEAN CORPUSCULAR HGB CONC 33 g/dL (31-37); MEAN CORPUSCULAR VOLUME 86 fL (79-100); MONO # 0.5 x10^3/uL (0.0-1.1); MONO % 7 % (0-9); NEUT # 6.1 x10^3/uL (1.8-7.7); NEUT % 85 % (31-73); PLATELET COUNT 254 x10^3/uL (140-400); RED BLOOD COUNT 4.07 x10^6/uL (3.50-5.40); RED CELL DISTRIBUTION WIDTH 14.8 % (11.5-14.5); WHITE BLOOD COUNT 7.2 x10^3/uL (4.0-11.0)
--- NOTE | 2021-07-24 07:56 | PDOC ---
[employer] PROGRESS NOTE Date of Service DOS: DATE: 07/24/21 TIME: 07:54 Chief Complaint Chief Complaint Acute encephalopathy -metabolic due to renal injury and sepsis from edgar lonephritis will treat. Right pyelonephritis - UA grossly abnormal. Rocephin 2g daily PARKER -likely vasomotor nephropathy will hydrate monitor Sepsis -due to likely right pyelonephritis Bilateral leg pain -has remote history of provoked DVT in the past. No swelling CT with no acute fractures of the pelvis. She has normal range of motion of both hips. We will give topical Voltaren to knees. Follow-up venous Dopplers bilateral Hypokalemia -likely nutritional will replace check mag monitor trend. Chronic cough - will treat as GERD Hypothyroidism -150 MCG's on the end of high dose especially given her history of atrial fibrillation we will start by decreasing to 112 MCG History of falls - rehab modalities H/o atrial fibrillation - cardioverted in the past. Alzheimer Dementia -no full-time caregiver at home. On Aricept and Namenda Hyperlipidemia - zetia + statin Hypertension - cont home meds Severe protein calorie malnutrition -likely due to advancing dementia and acute sepsis. FEN - regular diet PPX - lovenox CODE - DNR/DNI Dispo - inpatient History of Present Illness History of Present Illness Ms Miguel is a 76 yo female w/ PMHx hypothyroidism, afib, HTN, Alzheimer dementia, HLD, falls who comes to ED via EMS for worsening weakness and confusion at home. and son note for the past several days she has been acting more confused and crying out in pain when moving her right leg. She normally can get around with a walker but he has been having trouble getting around. and son both note she is also had a chronic cough which has been bothersome lately and she has been refusing to eat due to fear of coughing. When asked the patient where she has pain she says "my legs". Historically she always complains of pain in her legs per family. This is worse recently. She actually has been seen outpatient by orthopedic surgery at [facility] for severe osteoarthritis of bilateral knees and was recommended against surgery given the likelihood of a poor outcome. Heart rate 93 bpm and febrile to 102.7. Labs with WBC 10.3, Hb 12.8, platelets 218, INR 1, PTT 25, NA 133, K3.3, BUN 21, CR 1.7, glucose 106, calcium 9.1, bilirubin 0.6, AST 138, ALT 41, alkaline phosphatase 114, albumin 2.6, lipase 52, urinalysis with large leuk esterase lar ge blood foul-smelling, rapid influenza negative, rapid COVID-19 negative. Blood and urine cultures pending Noncontrast CT head on my review with no acute intracranial hemorrhage. Chest radiograph with no infiltrate noted. CT abdomen pelvis without contrast with diverticulosis and right perinephric proximal ureteral fat stranding concerning for pyelonephritis no ureteral obstructions. 07/24: Afebrile overnight. Moved rooms close to the nurses station for need for frequent redirection. Discussed with bedside she is complaining of some left knee pain today but her right leg pain is improved. Urine culture preliminarily shows greater than 100,000 CFU E. coli continue IV Rocephin frequent redirection. Zyprexa are Haldol for agitation Vitals/I&O Vitals/I&O: Vital Signs Date Time Temp Pulse Resp B/P (MAP) Pulse Ox O2 Delivery O2 Flow Rate FiO2 07/24/21 03:47 98.5 76 20 105/ 98 Room Air 98.5 I & O 07/23/21 07/23/21 07/24/21 15:00 23:00 07:00 Intake Total 1050 ml 260 ml 710 ml Balance 1050 ml 260 ml 710 ml Physical Exam General: Alert, Cooperative, mild distress Abdomen: Normal bowel sounds, Soft, No tenderness, No hepatosplenomegaly, No masses Extremities: No clubbing, No cyanosis, No edema, Normal pulses, No tenderness/swelling Skin: No rashes, No breakdown, No significant lesion Labs Labs: Laboratory Tests Test 07/23/21 08:30 07/23/21 08:50 07/23/21 09:06 07/23/21 09:13 White Blood Count 10.3 x10^3/uL (4.0-11.0) Red Blood Count 4.46 x10^6/uL (3.50-5.40) Hemoglobin 12.8 g/dL (12.0-15.5) Hematocrit 38.2 % (36.0-47.0) Mean Corpuscular Volume 86 fL (79-100) Mean Corpuscular Hemoglobin 29 pg (25-35) Mean Corpuscular Hemoglobin Concent 33 g/dL (31-37) Red Cell Distribution Width 14.9 % (11.5-14.5) Platelet Count 218 x10^3/uL (140-400) Neutrophils (%) (Auto) 83 % (31-73) Lymphocytes (%) (Auto) 9 % (24-48) Monocytes (%) (Auto) 8 % (0-9) Eosinophils (%) (Auto) 0 % (0-3) Basophils (%) (Auto) 0 % (0-3) Neutrophils # (Auto) 8.5 x10^3/uL (1.8-7.7) Lymphocytes # (Auto) 0.9 x10^3/uL (1.0-4.8) Monocytes # (Auto) 0.8 x10^3/uL (0.0-1.1) Eosinophils # (Auto) 0.0 x10^3/uL (0.0-0.7) Basophils # (Auto) 0.0 x10^3/uL (0.0-0.2) Influenza Type A Antigen Negative (NEGATIVE) Influenza Type B Antigen Negative (NEGATIVE) SARS-CoV-2 Antigen (Rapid) Negative (NEGATIVE) Sodium Level 133 mmol/L (136-145) Potassium Level 3.3 mmol/L (3.5-5.1) Chloride Level 100 mmol/L (98-107) Carbon Dioxide Level 24 mmol/L (21-32) Anion Gap 9 (6-14) Blood Urea Nitrogen 21 mg/dL (7-20) Creatinine 1.7 mg/dL (0.6-1.0) Estimated GFR (Cockcroft-Gault) 29.2 BUN/Creatinine Ratio 12 (6-20) Glucose Level 106 mg/dL (70-99) Calcium Level 9.1 mg/dL (8.5-10.1) Total Bilirubin 0.6 mg/dL (0.2-1.0) Aspartate Amino Transf (AST/SGOT) 138 U/L (15-37) Alanine Aminotransferase (ALT/SGPT) 41 U/L (14-59) Alkaline Phosphatase 114 U/L (46-116) Total Protein 7.2 g/dL (6.4-8.2) Albumin 2.6 g/dL (3.4-5.0) Albumin/Globulin Ratio 0.6 (1.0-1.7) Lipase 52 U/L (73-393) Prothrombin Time 13.3 SEC (11.7-14.0) Prothromb Time International Ratio 1.0 (0.8-1.1) Activated Partial Thromboplast Time 25 SEC (24-38) Troponin I High Sensitivity 31 ng/L (4-50) [id number]-Type Natriuretic Peptide 1288 pg/mL (0-449) Thyroid Stimulating Hormone (TSH) 0.091 uIU/mL (0.358-3.74) Test 07/23/21 09:22 07/24/21 06:27 Urine Collection Type U cath Urine Color (Auto) Yellow Urine Turbidity Hazy Urine pH (Auto) 5.5 (<5.0-8.0) Urine Specific [place] 1.014 (1.000-1.030) Urine Protein (Auto) 50 mg/dL (Negative) Urine Glucose (Auto)(UA) Negative mg/dL (Negative) Urine Ketones (Auto) Negative mg/dL (Negative) Urine Blood (Auto) Large (Negative) Urine Nitrite Negative (Negative) Urine Bilirubin (Auto) Negative (Negative) Urine Urobilinogen (Auto) Normal mg/dL (Normal) Urine Leukocyte Esterase (Auto) Large (Negative) Urine RBC 3-5 /HPF (0-2) Urine WBC 11-20 /HPF (0-4) Urine Bacteria Many /HPF (0-FEW) Urine Hyaline Casts Occasional /HPF Urine Mucus Slight /LPF White Blood Count 7.2 x10^3/uL (4.0-11.0) Red Blood Count 4.07 x10^6/uL (3.50-5.40) Hemoglobin 11.7 g/dL (12.0-15.5) Hematocrit 34.9 % (36.0-47.0) Mean Corpuscular Volume 86 fL (79-100) Mean Corpuscular Hemoglobin 29 pg (25-35) Mean Corpuscular Hemoglobin Concent 33 g/dL (31-37) Red Cell Distribution Width 14.8 % (11.5-14.5) Platelet Count 254 x10^3/uL (140-400) Neutrophils (%) (Auto) 85 % (31-73) Lymphocytes (%) (Auto) 8 % (24-48) Monocytes (%) (Auto) 7 % (0-9) Eosinophils (%) (Auto) 0 % (0-3) Basophils (%) (Auto) 0 % (0-3) Neutrophils # (Auto) 6.1 x10^3/uL (1.8-7.7) Lymphocytes # (Auto) 0.6 x10^3/uL (1.0-4.8) Monocytes # (Auto) 0.5 x10^3/uL (0.0-1.1) Eosinophils # (Auto) 0.0 x10^3/uL (0.0-0.7) Basophils # (Auto) 0.0 x10^3/uL (0.0-0.2) Assessment and Plan Assessmemt and Plan Problems Medical Problems: (1) Failure to thrive in adult Status: Acute (2) Hypokalemia Status: Acute (3) Inability to ambulate due to multiple joints Status: Acute (4) Renal insufficiency Status: Acute (5) UTI (urinary tract infection) Status: Acute Comment Review of Relevant I have reviewed the following items mandi (where applicable) has been applied. Medications: Current Medications Medications (Trade) Dose Ordered Sig/Ivett Route PRN Reason Start Time Stop Time Status Last Admin Dose Admin Ceftriaxone Sodium (Rocephin) 2 gm 1X ONCE IVP 07/23/21 10:00 07/23/21 10:01 DC 07/23/21 10:36 Potassium Chloride (Klor-Con) 40 meq 1X ONCE PO 07/23/21 10:15 07/23/21 10:16 DC 07/23/21 10:35 Acetaminophen (Tylenol) 650 mg PRN Q6HRS PRN PO MILD PAIN / TEMP > 100.3'F 07/23/21 12:30 07/23/21 13:17 DC 07/23/21 12:33 Lorazepam (Ativan Inj) 1 mg 1X ONCE IVP 07/23/21 12:30 07/23/21 12:31 DC 07/23/21 12:33 Fentanyl Citrate (Fentanyl 2ml Vial) 25 mcg PRN Q3HRS PRN IVP SEVERE PAIN 7-10 07/23/21 13:15 07/24/21 04:55 Sodium Chloride 1,000 ml @ 125 mls/hr 1X ONCE IV 07/23/21 13:30 07/23/21 21:29 DC 07/23/21 14:00 Atorvastatin Calcium (Lipitor) 10 mg QHS PO 07/23/21 21:00 07/23/21 21:52 Donepezil HCl (Aricept) 10 mg BID PO 07/23/21 21:00 07/23/21 21:52 Memantine (Namenda) 10 mg BID PO 07/23/21 21:00 07/23/21 21:52 Justifications for Admission Other Justification Acute lower extremity DVT DEWAYNE CARLSON MD July 24, 2021 07:56
[2021-07-24 07:59] LABS: ALBUMIN 2.1 g/dL (3.4-5.0); ALBUMIN/GLOBULIN RATIO 0.5 (1.0-1.7); CALCIUM 8.7 mg/dL (8.5-10.1); GFR 53.9; POTASSIUM 3.9 mmol/L (3.5-5.1); TOTAL BILIRUBIN 0.4 mg/dL (0.2-1.0); TOTAL PROTEIN 6.4 g/dL (6.4-8.2)
[2021-07-24] MEDS: MEMANTINE 10 MG TABLET. PO SCH ×2 (08:56→21:33)
[2021-07-24] MEDS: LANSOPRAZOLE 30 MG TAB.RAP.DR PO SCH ×2 (08:56→16:30)
[2021-07-24] MEDS: EZETIMIBE 10 MG TABLET. PO SCH (08:56)
[2021-07-24] MEDS: SERTRALINE 25 MG TABLET. PO SCH (08:56)
[2021-07-24] MEDS: DONEPEZIL HCL 10 MG TABLET. PO SCH ×2 (08:56→21:33)
[2021-07-24] MEDS: LEVOTHYROXINE 112 MCG TABLET PO SCH (08:56)
[2021-07-24] MEDS: cefTRIAXone IV Push 2 GM VIAL. IVP SCH (10:00)
--- NOTE | 2021-07-24 10:47 | RAD ---
Bilateral Lower Extremity Venous Doppler: Reason for examination: History of DVT, leg pain, evaluate for recurrent DVT The lower extremity venous systems bilaterally were evaluated from the common femoral and greater sap henous veins distally to the calf veins with grayscale imaging, color-flow imaging and spectral wilver sis. There is normal blood flow without deep venous thrombosis. There is normal response of the venous sys tems to compression and augmentation. There is a Fisher's cyst behind the right knee measuring 4.3 x 1 x 2.1 cm Impression: 1. No deep venous thrombosis in the lower extremity venous systems bilaterally. 2. Fisher's cyst behind the right knee. Electronically signed by: Betito Hayes MD (07/24/2021 10:44 AM) [facility]
[2021-07-24 11:00] VITALS: BP 147/64
[2021-07-24 15:00] VITALS: BP 107/51
[2021-07-24 19:00] VITALS: BP 129/81
[2021-07-24] MEDS: ATORVASTATIN CALCIUM 10 MG TABLET. PO SCH (21:33)
[2021-07-24 23:00] VITALS: BP 187/65
[2021-07-25 03:00] VITALS: BP 170/73
[2021-07-25 05:59] LABS: CREATININE 0.9 mg/dL (0.6-1.0); GFR 60.9; POTASSIUM 3.3 mmol/L (3.5-5.1)
[2021-07-25 07:00] VITALS: BP 151/72
[2021-07-25] MEDS: LEVOTHYROXINE 112 MCG TABLET PO SCH (07:18)
[2021-07-25] MEDS: LANSOPRAZOLE 30 MG TAB.RAP.DR PO SCH ×2 (07:42→16:10)
[2021-07-25] MEDS: DONEPEZIL HCL 10 MG TABLET. PO SCH ×2 (08:42→20:55)
[2021-07-25] MEDS: MEMANTINE 10 MG TABLET. PO SCH ×2 (08:42→20:55)
[2021-07-25] MEDS: EZETIMIBE 10 MG TABLET. PO SCH (08:42)
[2021-07-25] MEDS: SERTRALINE 25 MG TABLET. PO SCH (08:44)
[2021-07-25] MEDS: cefTRIAXone IV Push 2 GM VIAL. IVP SCH (10:25)
[2021-07-25 11:00] VITALS: BP 135/87
[2021-07-25 15:00] VITALS: BP 117/55
--- NOTE | 2021-07-25 17:26 | PDOC ---
[employer] PROGRESS NOTE Date of Service DOS: DATE: 07/25/21 TIME: 17:26 Chief Complaint Chief Complaint Acute encephalopathy -metabolic due to renal injury and sepsis from edgar lonephritis will treat. Right pyelonephritis - UA grossly abnormal. Rocephin 2g daily PARKER -likely vasomotor nephropathy will hydrate monitor Sepsis -due to likely right pyelonephritis Bilateral leg pain -has remote history of provoked DVT in the past. No swelling CT with no acute fractures of the pelvis. She has normal range of motion of both hips. We will give topical Voltaren to knees. Follow-up venous Dopplers bilateral Hypokalemia -likely nutritional will replace check mag monitor trend. Chronic cough - will treat as GERD Hypothyroidism -150 MCG's on the end of high dose especially given her history of atrial fibrillation we will start by decreasing to 112 MCG History of falls - rehab modalities H/o atrial fibrillation - cardioverted in the past. Alzheimer Dementia -no full-time caregiver at home. On Aricept and Namenda Hyperlipidemia - zetia + statin Hypertension - cont home meds Severe protein calorie malnutrition -likely due to advancing dementia and acute sepsis. FEN - regular diet PPX - lovenox CODE - DNR/DNI Dispo - inpatient History of Present Illness History of Present Illness Ms Miguel is a 76 yo female w/ PMHx hypothyroidism, afib, HTN, Alzheimer dementia, HLD, falls who comes to ED via EMS for worsening weakness and confusion at home. and son note for the past several days she has been acting more confused and crying out in pain when moving her right leg. She normally can get around with a walker but he has been having trouble getting around. and son both note she is also had a chronic cough which has been bothersome lately and she has been refusing to eat due to fear of coughing. When asked the patient where she has pain she says "my legs". Historically she always complains of pain in her legs per family. This is worse recently. She actually has been seen outpatient by orthopedic surgery at [facility] for severe osteoarthritis of bilateral knees and was recommended against surgery given the likelihood of a poor outcome. Heart rate 93 bpm and febrile to 102.7. Labs with WBC 10.3, Hb 12.8, platelets 218, INR 1, PTT 25, NA 133, K3.3, BUN 21, CR 1.7, glucose 106, calcium 9.1, bilirubin 0.6, AST 138, ALT 41, alkaline phosphatase 114, albumin 2.6, lipase 52, urinalysis with large leuk esterase lar ge blood foul-smelling, rapid influenza negative, rapid COVID-19 negative. Blood and urine cultures pending Noncontrast CT head on my review with no acute intracranial hemorrhage. Chest radiograph with no infiltrate noted. CT abdomen pelvis without contrast with diverticulosis and right perinephric proximal ureteral fat stranding concerning for pyelonephritis no ureteral obstructions. 07/24: Afebrile overnight. Moved rooms close to the nurses station for need for frequent redirection. Discussed with bedside she is complaining of some left knee pain today but her right leg pain is improved. Urine culture preliminarily shows greater than 100,000 CFU E. coli continue IV Rocephin frequent redirection. Zyprexa are Haldol for agitation 07/25 Patient evaluated examined at bedside. Sitting up in chair eating lunch. Family member at bedside as well. Continuing IV antibiotics. PT OT. Likely will need placement at this point. Discussed with bedside RN. Vitals/I&O Vitals/I&O: Vital Signs Date Time Temp Pulse Resp B/P (MAP) Pulse Ox O2 Delivery O2 Flow Rate FiO2 07/25/21 11:00 97.6 59 20 135/87 (103) 98 Room Air 97.6 I & O 07/24/21 07/24/21 07/25/21 15:00 23:00 07:00 Intake Total 0 ml 0 ml Balance 0 ml 0 ml Physical Exam General: Alert, Cooperative, mild distress Abdomen: Normal bowel sounds, Soft, No tenderness, No hepatosplenomegaly, No masses Extremities: No clubbing, No cyanosis, No edema, Normal pulses, No tenderness/swelling Skin: No rashes, No breakdown, No significant lesion Labs Labs: Laboratory Tests Test 07/25/21 05:15 Sodium Level 140 mmol/L (136-145) Potassium Level 3.3 mmol/L (3.5-5.1) Chloride Level 106 mmol/L (98-107) Carbon Dioxide Level 23 mmol/L (21-32) Anion Gap 11 (6-14) Blood Urea Nitrogen 12 mg/dL (7-20) Creatinine 0.9 mg/dL (0.6-1.0) Estimated GFR (Cockcroft-Gault) 60.9 Glucose Level 101 mg/dL (70-99) Calcium Level 9.0 mg/dL (8.5-10.1) Assessment and Plan Assessmemt and Plan Problems Medical Problems: (1) Failure to thrive in adult Status: Acute (2) Hypokalemia Status: Acute (3) Inability to ambulate due to multiple joints Status: Acute (4) Renal insufficiency Status: Acute (5) UTI (urinary tract infection) Status: Acute Comment Review of Relevant I have reviewed the following items mandi (where applicable) has been applied. Justifications for Admission Other Justification Acute lower extremity DVT DEWAYNE KWON MD July 25, 2021 17:26
[2021-07-25 19:00] VITALS: BP 109/61
[2021-07-25] MEDS: ATORVASTATIN CALCIUM 10 MG TABLET. PO SCH (20:55)
[2021-07-25] MEDS: LACTOBACILLUS RHAMNOSUS GG 1 CAPSULE. PO SCH (20:55)
[2021-07-25 23:00] VITALS: BP 146/61
[2021-07-26 03:00] VITALS: BP 141/68
[2021-07-26] MEDS: LEVOTHYROXINE 112 MCG TABLET PO SCH (06:08)
[2021-07-26 07:00] VITALS: BP 154/69
[2021-07-26] MEDS: LANSOPRAZOLE 30 MG TAB.RAP.DR PO SCH ×2 (07:34→16:29)
--- NOTE | 2021-07-26 08:33 | EKG ---
[facility] [address] [place] [address] Test Date: 2021-07-23 Test Time: 07:17:42 Pat Name: WALLY MCKINLEY Department: Room: 538 1 Gender: F Pacu Nurse: : 1945 Requested By: ALEX KAY Order Number: [id number] Reading MD: Adam Henriquez MD Measurements Intervals [place] Rate: 70 P: -161 MD: 154 QRS: -47 QRSD: 96 T: 22 QT: 384 QTc: 417 Interpretive Statements SINUS RHYTHM BASELINE ARTIFACT Electronically Signed On 07-26-2021 11:09:34 CDT by Adam Henriquez MD
[2021-07-26] MEDS: MEMANTINE 10 MG TABLET. PO SCH ×2 (08:35→20:21)
[2021-07-26] MEDS: SERTRALINE 25 MG TABLET. PO SCH (08:35)
[2021-07-26] MEDS: EZETIMIBE 10 MG TABLET. PO SCH (08:35)
[2021-07-26] MEDS: DONEPEZIL HCL 10 MG TABLET. PO SCH ×2 (08:35→20:21)
[2021-07-26] MEDS: LACTOBACILLUS RHAMNOSUS GG 1 CAPSULE. PO SCH ×2 (08:35→20:21)
[2021-07-26 08:56] LABS: CALCIUM 8.7 mg/dL (8.5-10.1); CREATININE 0.8 mg/dL (0.6-1.0); GFR 69.7; POTASSIUM 3.4 mmol/L (3.5-5.1)
--- NOTE | 2021-07-26 10:05 | PDOC ---
[employer] PROGRESS NOTE Date of Service DOS: DATE: 07/26/21 TIME: 10:04 Chief Complaint Chief Complaint Acute encephalopathy -metabolic due to renal injury and sepsis from edgar lonephritis will treat. Right pyelonephritis - UA grossly abnormal. Rocephin 2g daily PARKER -likely vasomotor nephropathy will hydrate monitor Sepsis -due to likely right pyelonephritis Bilateral leg pain -has remote history of provoked DVT in the past. No swelling CT with no acute fractures of the pelvis. She has normal range of motion of both hips. We will give topical Voltaren to knees. Follow-up venous Dopplers bilateral Hypokalemia -likely nutritional will replace check mag monitor trend. Chronic cough - will treat as GERD Hypothyroidism -150 MCG's on the end of high dose especially given her history of atrial fibrillation we will start by decreasing to 112 MCG History of falls - rehab modalities H/o atrial fibrillation - cardioverted in the past. Alzheimer Dementia -no full-time caregiver at home. On Aricept and Namenda Hyperlipidemia - zetia + statin Hypertension - cont home meds Severe protein calorie malnutrition -likely due to advancing dementia and acute sepsis. FEN - regular diet PPX - lovenox CODE - DNR/DNI Dispo - inpatient History of Present Illness History of Present Illness Ms Miguel is a 76 yo female w/ PMHx hypothyroidism, afib, HTN, Alzheimer dementia, HLD, falls who comes to ED via EMS for worsening weakness and confusion at home. and son note for the past several days she has been acting more confused and crying out in pain when moving her right leg. She normally can get around with a walker but he has been having trouble getting around. and son both note she is also had a chronic cough which has been bothersome lately and she has been refusing to eat due to fear of coughing. When asked the patient where she has pain she says "my legs". Historically she always complains of pain in her legs per family. This is worse recently. She actually has been seen outpatient by orthopedic surgery at [facility] for severe osteoarthritis of bilateral knees and was recommended against surgery given the likelihood of a poor outcome. Heart rate 93 bpm and febrile to 102.7. Labs with WBC 10.3, Hb 12.8, platelets 218, INR 1, PTT 25, NA 133, K3.3, BUN 21, CR 1.7, glucose 106, calcium 9.1, bilirubin 0.6, AST 138, ALT 41, alkaline phosphatase 114, albumin 2.6, lipase 52, urinalysis with large leuk esterase lar ge blood foul-smelling, rapid influenza negative, rapid COVID-19 negative. Blood and urine cultures pending Noncontrast CT head on my review with no acute intracranial hemorrhage. Chest radiograph with no infiltrate noted. CT abdomen pelvis without contrast with diverticulosis and right perinephric proximal ureteral fat stranding concerning for pyelonephritis no ureteral obstructions. 07/24: Afebrile overnight. Moved rooms close to the nurses station for need for frequent redirection. Discussed with bedside she is complaining of some left knee pain today but her right leg pain is improved. Urine culture preliminarily shows greater than 100,000 CFU E. coli continue IV Rocephin frequent redirection. Zyprexa are Haldol for agitation 07/25 Patient evaluated examined at bedside. Sitting up in chair eating lunch. Family member at bedside as well. Continuing IV antibiotics. PT OT. Likely will need placement at this point. Discussed with bedside RN. 07/26 Patient evaluated examined at bedside. Resting in bed easily awoken no complaints. Continue antibiotics can switch to orals on discharge. Continue working with therapy patient does need placement. Overall ready for discharge once placement found. Discussed with bedside RN. Vitals/I&O Vitals/I&O: Vital Signs Date Time Temp Pulse Resp B/P (MAP) Pulse Ox O2 Delivery O2 Flow Rate FiO2 07/26/21 07:00 97.7 58 18 154/69 (97) 99 Room Air 97.7 I & O 07/25/21 07/25/21 07/26/21 15:00 23:00 07:00 Intake Total 120 ml 0 ml Output Total 400 ml Balance -400 ml 120 ml 0 ml Physical Exam General: Alert, Cooperative, mild distress Heart: Regular rate Lungs: Clear Abdomen: Normal bowel sounds, Soft, No tenderness, No hepatosplenomegaly, No masses Extremities: No clubbing, No cyanosis, No edema, Normal pulses, No tenderness/swelling Skin: No rashes, No breakdown, No significant lesion Labs Labs: Laboratory Tests Test 07/26/21 08:00 Sodium Level 144 mmol/L (136-145) Potassium Level 3.4 mmol/L (3.5-5.1) Chloride Level 108 mmol/L (98-107) Carbon Dioxide Level 26 mmol/L (21-32) Anion Gap 10 (6-14) Blood Urea Nitrogen 11 mg/dL (7-20) Creatinine 0.8 mg/dL (0.6-1.0) Estimated GFR (Cockcroft-Gault) 69.7 Glucose Level 99 mg/dL (70-99) Calcium Level 8.7 mg/dL (8.5-10.1) Assessment and Plan Assessmemt and Plan Problems Medical Problems: (1) Failure to thrive in adult Status: Acute (2) Hypokalemia Status: Acute (3) Inability to ambulate due to multiple joints Status: Acute (4) Renal insufficiency Status: Acute (5) UTI (urinary tract infection) Status: Acute Comment Review of Relevant I have reviewed the following items mandi (where applicable) has been applied. Medications: Current Medications Medications (Trade) Dose Ordered Sig/Ievtt Route PRN Reason Start Time Stop Time Status Last Admin Dose Admin Lactobacillus Rhamnosus (Culturelle) 1 cap BID PO 07/25/21 21:00 07/26/21 08:35 Justifications for Admission Other Justification Acute lower extremity DVT DEWAYNE KWON MD July 26, 2021 10:05
[2021-07-26] MEDS: cefTRIAXone IV Push 2 GM VIAL. IVP SCH (10:19)
--- NOTE | 2021-07-26 10:30 | EKG ---
[facility] [address] [place] [address] Test Date: 2021-07-23 Test Time: 08:25:49 Pat Name: WALLY MCKINLEY Department: Room: 538 1 Gender: F Pulp Grinder: : 1945 Requested By: ALEX KAY Order Number: [id number] Reading MD: Adam Henriquez MD Measurements Intervals [place] Rate: 74 P: 54 [place]: 182 QRS: -27 QRSD: 94 T: 21 QT: 386 QTc: 434 Interpretive Statements SINUS RHYTHM Electronically Signed On 07-26-2021 11:09:19 CDT by Adam Henriquez MD
[2021-07-26 11:00] VITALS: BP 140/74
--- NOTE | 2021-07-26 13:54 | NUR ---
SS following for discharge planning. SS reviewed pt chart and discussed with pt RN. Pt is from home with spouse and is currently on room air. COVID19 negative on rapid test. Pt on IV Rocephin. PO diet. PT/OT recommended half-way unit. SS met with pt and spouse in room and discussed discharge planning and half-way unit. Pt's spouse requesting referral to [facility], ; fax [phone]. Referral sent as requested. SS will continue to follow for discharge planning. Addendum: 07/26/21 at 1357 by UNA VALENTIN SS Per spouse, pt vaccinated for COVID19 x3. COVID19 PCR requested for placement.
[2021-07-26 15:00] VITALS: BP 131/67
[2021-07-26 19:00] VITALS: BP 120/60
[2021-07-26] MEDS: ATORVASTATIN CALCIUM 10 MG TABLET. PO SCH (20:21)
== END 2021-07-27 | DRG 871 ==
LOC: ER 07:02 → 5 NORTH 10:00
PROVIDERS: ADMIT Internal Medicine; ATTEND Internal Medicine
DX: A41.9 Sepsis, unspecified organism (principal); G93.41 Metabolic encephalopathy; N17.0 Acute kidney failure with tubular necrosis; E43 Unspecified severe protein-calorie malnutrition; N10 Acute pyelonephritis; N12 Tubulo-interstitial nephritis, not specified as acute or chronic; E03.9 Hypothyroidism, unspecified; E78.00 Pure hypercholesterolemia, unspecified; E78.5 Hyperlipidemia, unspecified; E87.6 Hypokalemia; F02.80 Dementia in other diseases classified elsewhere, unspecified severity, without behavioral disturbance, psychotic disturbance, mood disturbance, and anxiety; G30.9 Alzheimer's disease, unspecified; I11.0 Hypertensive heart disease with heart failure; I48.91 Unspecified atrial fibrillation; I50.9 Heart failure, unspecified; K21.9 Gastro-esophageal reflux disease without esophagitis; K57.90 Diverticulosis of intestine, part unspecified, without perforation or abscess without bleeding; R62.7 Adult failure to thrive; Z20.822 Contact with and (suspected) exposure to COVID-19; Z66 Do not resuscitate; Z82.49 Family history of ischemic heart disease and other diseases of the circulatory system; Z86.718 Personal history of other venous thrombosis and embolism; Z91.81 History of falling; M19.90 Unspecified osteoarthritis, unspecified site
CPT/HCPCS: 36415; 70450; 71045; 74176; 80048; 80053; 81001; 83690; 83880; 84443; 84484; 85025; 85610; 85730; 87040; 87077; 87086; 87186; 87428; 93005; 93970; 96374; J0696; J2060; J3010; J7030; U0003; 92610-GN; 97110-GO; 97110-GP; 97530-GP; 97535-GO; 99285-25; G0378